=== PATIENT | male | born 1995 | race Caucasian/White ===

== ENCOUNTER 2020-03-17 18:10 | Emergency (ER) | payer SELFPAY ==
[~2020-03-17] VITALS: Ht 177.8 cm; Wt 74.8 kg
[2020-03-17 18:14] VITALS: BP 123/78
--- NOTE | 2020-03-17 19:21 | NUR ---
Katelynn hess in [facility] - 03/17/20 at 1922 by ADAM REPORT AND TRANSFER OF CARE GIVEN TO BARBARA WASHINGTON
--- NOTE | 2020-03-17 19:28 | NUR ---
Report received from BARBARA Hair for continuation of care.
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
[2020-03-17] MEDS ORDERED: KETOROLAC 30 MG/ML VIAL IM ONE (21:45)
[2020-03-17 22:03] VITALS: BP 128/80
--- NOTE | 2020-03-17 22:03 | NUR ---
PATIENT BIB [place] [employer]. PATIENT EXAMINED BY DR. Stephens. PATIENT MEDICALLY CLEARED AND RELEASED IN CUSTODY IN STABLE CONDITION. ORIGINAL PRE-BOOK FORM GIVEN TO OFFICER Jada Donnelly #[id number].Patient discharged with v/s stable. Written and verbal after care instructions given and explained. Patient alert, oriented and verbalized understanding of instructions. Police with in custody. All questions addressed prior to discharge. ID band removed. Patient advised to follow up with PMD. Rx of Motrin given. Patient educated on indication of medication including possible reaction and side effects. Opportunity to ask questions provided and answered.
== END 2020-03-17 22:03 ==
LOC: EDSEX 18:10 → MED 18:10
DX: S02.2XXA Fracture of nasal bones, initial encounter for closed fracture (principal); S02.69XA Fracture of mandible of other specified site, initial encounter for closed fracture; Z02.89 Encounter for other administrative examinations; V89.9XXA Person injured in unspecified vehicle accident, initial encounter; Y93.89 Activity, other specified; Y92.89 Other specified places as the place of occurrence of the external cause; Y99.8 Other external cause status
CPT/HCPCS: 70450; 70486; 72125; 90471; 90715; 96372; 99285; J1885

== ENCOUNTER 2023-08-22 13:06 | Emergency (ER) | payer OTHER ==
[~2023-08-22] VITALS: Ht 167.6 cm; Wt 68.0 kg
[2023-08-22 13:13] VITALS: BP 125/76; PULSE 85; RESP 16; TEMP 97.4; O2SAT 100
[2023-08-22] MEDS: BACITRACIN OINT 500 UNITS/GM PKT TP ONE (14:09)
[2023-08-22 14:26] VITALS: BP 121/64; PULSE 81; RESP 14; TEMP 98.2; O2SAT 99
== END 2023-08-22 14:25 ==
LOC: MED 13:06
DX: M25.531 Pain in right wrist (principal); M25.511 Pain in right shoulder; S91.302A Unspecified open wound, left foot, initial encounter; X58.XXXA Exposure to other specified factors, initial encounter; Y93.67 Activity, basketball; Y92.89 Other specified places as the place of occurrence of the external cause; Y99.8 Other external cause status
CPT/HCPCS: 73000; 99283